=== PATIENT | female | born 1935 | race Caucasian/White ===

== ENCOUNTER 2023-12-06 15:49 | Emergency (ER) | payer MEDICARE, MEDICAID, SELFPAY ==
[2023-12-06] VITALS (8 sets, daily range): BP systolic 134–217; BP diastolic 77–111; PULSE 75–121; RESP 16–21; TEMP 36.8; O2SAT 92–96; BMI 21.6
--- NOTE | 2023-12-06 15:54 | XR_ITS ---
WS: [id number] Examination: XR chest 1V portable [id number] Reason for Exam: cp Date: December 06, 2023 Comparison: None. Findings: The heart is enlarged. The mediastinum appears prominent. Atherosclerotic changes of the aorta with b roadening is noted. There is no pulmonary edema or effusion. There is no dense consolidation. XR/XR chest 1V portable [id number] Impression: There is cardiomegaly. The mediastinum is prominent which may be related to the portable AP study. PA and lateral imaging is recommended for further evaluatio n There is no failure or consolidation..
--- NOTE | 2023-12-06 15:55 | ECG_ITS ---
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 Measurements Intervals [place] Rate: 76 P: 46 SD: 191 QRS: -19 QRSD: 85 T: 35 QT: 381 QTc: 430 Interpretive Statements SINUS RHYTHM MINIMAL VOLTAGE CRITERIA FOR LVH, CONSIDER NORMAL VARIANT [MEETS CRITERIA IN ONE OF: R(aVL), S(V1), R(V5), R(V5/V6)+S(V1)] SEPTAL MYOCARDIAL INFARCTION , PROBABLY OLD [40+ ms Q WAVE IN V1/V2] No previous ECG available for comparison Electronically Signed On 12-07-2023 7:38:10 CDT by Sergio Fletcher M.D. [email or web address]
--- NOTE | 2023-12-06 15:59 | ED_ITS ---
HPI - Chest Pain 2 General: Chief Complaint: Chest Pain Stated Complaint: cp Time Seen by Provider: 12/06/23 15:53 Source: patient and EMS Mode of arrival: EMS Limitations: altered mental status History of Present Illness: 88-year-old female has a history of lety ntia she is here from [facility] patient is at her baseline mentally which is alert to herself per EMS patient complained of some chest pain and actually 30 minutes ago she did now deny any pain she states she feels good denies vomiting denies abdominal pain. Associated symptoms: Deny abdominal pain, dyspnea, fever(s), nausea or vomiting Related Data Previous Rx's Medication Instructions Recorded hydrocodone 5 mg-acetaminophen 325 1 tab PO Q6H PRN pain #14 tabs 12/06/23 mg tablet Allergies Allergy/AdvReac Type Severity Reaction Status Date / Time No Known Allergies Allergy Verified 12/06/23 16:04 Review of Systems 2 Const: Denies: fever(s), chills, body aches or change in appetite ENMT: Denies: throat pain or dental pain Card: Reports: chest pain Resp: Denies: dyspnea GI: Denies: abdominal pain, nausea, vomiting or diarrhea : Denies: dysuria Musc: Denies: neck pain or back pain Skin/Breast: Denies: rash Neuro: Denies: headache(s) Physical Exam 2 Const: COMMON NORMALS: no acute distress, healthy appearing and alert; negative for patient oriented x3 ORIENTATION/CONSCIOUSNESS: Yes oriented to person; not oriented to place and not oriented to time HENMT: COMMON NORMALS: normocephalic and atraumatic HEAD & SCALP: n ormocephalic and atraumatic Eye: COMMON NORMALS: Equal, round and reactive pupils present and EOMs intact bilaterally PUPIL: Yes Equal, round and reactive pupils present Neck/C-Spine: COMMON NORMALS: full ROM and supple Chest: COMMONS NORMALS: normal inspection of the chest and normal palpation of entire chest wall Resp: COMMON NORMALS: normal respiratory effort, No retractions, No use of accessory muscles and clear to auscultation bilaterally AUSCULTATION: clear to auscultation bilaterally Cardio: COMMON NORMALS: regular rate, regular rhythm and No murmurs present (Cardio) RATE: regular rate RHYTHM: regular rhythm GI: COMMON NORMALS: Normal to inspection, nondistended, normoactive bowel sounds present, Soft to palpation, non-tender and no masses PALPATION: Yes Soft to palpation Extremity: COMMON NORMALS: normal to inspection and full ROM Neuro: COMMON NORMALS: moves all extremities and no focal motor deficits; negative for patient oriented x3 SENSORIUM/ORIENTATION: Yes alert, Yes oriented to person, No oriented to place and No oriented to time Psych: COMMON NORMALS: Normal thought process present and cooperative T HOUGHT PROCESS: Normal thought process present Skin: COMMON NORMALS: no rashes or lesions noted and no wounds GENERAL SKIN EXAM: no rashes or lesions noted Course 2 Vital Signs: Vital signs: Vital Signs Temperature 98.2 F 12/06/23 15:52 Pulse Rate 121 H 12/06/23 18:30 Respiratory Rate 20 H 12/06/23 18:05 Blood Pressure 134/77 12/06/23 18:30 Pulse Oximetry 94 12/06/23 18:30 Oxygen Delivery Me thod Room Air 12/06/23 18:30 MDM - Chest Pain Medical Decision Making Patient presents here with chest pain CT did show rib fracture is likely causing her pain troponins are negative she is stable for discharge back to [facility] follow-up PCP return if worsening Medical Records I reviewed the patient's medical records. Lab Data I reviewed the patient's lab results. 12/06/23 16:00 12/06/23 16:34 Radiology Impressions Chest X-Ray 12/06/23 15:54 Impression: There is cardiomegaly. The mediastinum is prominent which may be related to the portable AP study. PA and lateral imaging is recommended for further evaluation There is no failure or consolidation.. Chest CTA 12/06/23 16:40 IMPRESSION: No pulmonary embolus. No focal consolidations. Fractures of left ribs 7 and 8, and the lateral aspect of right rib 5. Healing fracture of the posterior aspect of right ribs 7 and 9. Laboratory Results WBC 9.69 10^3/uL (3.29-11.43) 12/06/23 16:00 RBC 5.00 10^6/uL (3.85-5.65) 12/06/23 16:00 Hgb 14.90 g/dL (11.27-16.99) 12/06/23 16:00 Hct 45.1 % (36-47) 12/06/23 16:00 MCV 90.2 fl (85-98) 12/06/23 16:00 MCH 29.8 pg (27-33) 12/06/23 16:00 MCHC 33.0 g/dL (30-55) 12/06/23 16:00 RDW 13.7 % (12.1-15.1) 12/06/23 16:00 Plt Count 194 10^3/cmm (157-399) 12/06/23 16:00 MPV 11.3 fL (7.4-10.4) H 12/06/23 16:00 Neut % (Auto) 77.0 % 12/06/23 16:00 Lymph % (Auto) 15.0 % 12/06/23 16:00 [place] % (Auto) 6.5 % 12/06/23 16:00 Eos % (Auto) 0.8 % 12/06/23 16:00 Baso % (Auto) 0.4 % 12/06/23 16:00 Neut # (Auto) 7.46 10^3/uL (1.8-7.7) 12/06/23 16:00 Lymph # (Auto) 1.5 10^3/uL (0.8-4.8) 12/06/23 16:00 [place] # (Auto) 0.6 10^3/uL (0.2-0.9) 12/06/23 16:00 Eos # (Auto) 0.1 10^3/uL (0.0-0.8) 12/06/23 16:00 Baso # (Auto) 0.0 10^3/uL (0.0-0.1) 12/06/23 16:00 Nucleated RBC % (auto) 0 % 12/06/23 16:00 Nucleated RBCs # 0.0 /100WBC 12/06/23 16:00 PT 12.60 SECONDS (12.1-14.9) 12/06/23 16:00 INR 0.92 (0.8-1.2) 12/06/23 16:00 Sodium 143 mmol/L (136-145) 12/06/23 16:34 Potassium 3.3 mmol/L (3.5-5.1) L 12/06/23 16:34 Chloride 106 mmol/L (98-107) 12/06/23 16:34 Carbon Dioxide 23 mmol/L (22-29) 12/06/23 16:34 Anion Gap 17.3 (5-19) 12/06/23 16:34 BUN 13 mg/dL (8-23) 12/06/23 16:34 Creatinine 0.6 mg/dL (0.5-0.9) 12/06/23 16:34 GFR Calculation Not Reportable 12/06/23 16:34 Glucose 106 mg/dL (65-115) 12/06/23 16:34 Calculated Osmolality 297 mOsm/kg (285-295) H 12/06/23 16:34 Calcium 8.9 mg/dL (8.5-10.5) 12/06/23 16:34 Total Bilirubin 1.0 mg/dL (0.15-1.2) 12/06/23 16:34 AST 15 U/L (0-32) 12/06/23 16:34 ALT 10 U/L (0-33) 12/06/23 16:34 Alkaline Phosphatase 108 U/L (35-105) H 12/06/23 16:34 Troponin T Baseline 11 ng/L (0-10) H 12/06/23 16:34 Troponin T 120 Minute 12.68 ng/L (0-10) H 12/06/23 18:24 Delta Troponin T 1.68 ABS# (0-10) 12/06/23 18:24 Total Protein 6.5 g/dL (6.6-8.7) L 12/06/23 16:34 Albumin 3.9 g/dL (3.5-5.2) 12/06/23 16:34 Globulin 2.6 g/dL (1.3-4.6) 12/06/23 16:34 Lipase 30 U/L (13-60) 12/06/23 16:34 All radiology interpretation(s) finalized by discharge EKG Data EKG 1: I personally reviewed and interpreted this EKG as follows: EKG interpretation date: 12/06/23 EKG interpretation time: 15:55 Interpretation: nsr hr [address] elevation qrs 85 qtc 412 Discharge Plan Discharge Patient Disposition: Home Clinical Impression: Chest pain, Closed rib fracture Condition: Stable Prescriptions: New hydrocodone-acetaminophen 5-325 mg tablet 1 tab PO Q6H PRN (Reason: pain) Qty: 14 0RF Discharge Orders: Discharge ED (Routine); Ordered 12/06/23 Ordered By: Page Fortune Discharge Diet: Advance as tolerated Discharge Activity: Resume usual activity Patient Instructions: Chest Pain (ED), Rib Fracture (ED) Coding Level of Care Code ED [place] Consultant for Deysi Umanzor
[2023-12-06 16:19] LABS: Basophils % 0.4 %; Eosinophils # 0.1 10^3/uL (0.0-0.8); Eosinophils % 0.8 %; Hematocrit 45.1 % (36-47); Lymphocytes # 1.5 10^3/uL (0.8-4.8); Mean Corpuscular Hemoglobin 29.8 pg (27-33); Mean Corpuscular Volume 90.2 fl (85-98); Mean Platelet Volume 11.3 fL (7.4-10.4); Monocytes # 0.6 10^3/uL (0.2-0.9); Monocytes % 6.5 %; Neutrophils # 7.46 10^3/uL (1.8-7.7); Nucleated Red Blood Cells % 0 %; Platelet Count 194 10^3/cmm (157-399); Red Cell Distribution Width 13.7 % (12.1-15.1); White Blood Count 9.69 10^3/uL (3.29-11.43)
[2023-12-06 16:35] LABS: INR 0.92 (0.8-1.2)
--- NOTE | 2023-12-06 16:40 | CTR_ITS ---
PROCEDURE INFORMATION: Exam: CTA Chest With Contrast Exam date and time: 12/06/2023 5:26 PM Age: 88 years old Clinical indication: Angina; Additional info: Cp TECHNIQUE: Imaging protocol: Computed tomographic angiography of the chest with contrast. Exam focused on the arteries. 3D rendering (Not supervised by radiologist): MIP and/or 3D reconstructed images were created by the technologist. Radiation optimization: All CT scans at this facility use at least one of these dose optimization techniques: automated exposure control; mA and/or kV adjustment per patient size (includes targeted exams where dose is matched to clinical indication); or iterative reconstruction. Contrast material: OMNI 350; Contrast volume: 63 ml; Contrast route: INTRAVENOUS (IV); COMPARISON: CR XR chest 1V portable [id number] 12/06/2023 4:26 PM RADIATION DOSE METRICS: Total DLP (mGy-cm): 297.97 FINDINGS: Pulmonary arteries: No pulmonary embolus. Aorta: Atherosclerotic calcifications. No aortic aneurysm. No aortic dissection. Lungs: No focal consolidations or suspicious pulmonary nodules. Calcified granuloma within the right middle lobe. Minimal atelectasis of the lingula and lung bases. Pleural spaces: Unremarkable. No pneumothorax. No pleural effusion. Heart: Cardiomegaly. Coronary arteries: Coronary artery calcifications. Lymph nodes: Unremarkable. No enlarged lymph nodes. Gallbladder and biliary ducts: Status post cholecystectomy. Bones/joints: Fractures of left ribs 7 and 8, and the lateral aspect of right rib 5. Healing fracture of the posterior aspect of right ribs 7 and 9. Soft tissues: Unremarkable. CT/CT angio chest [id number] IMPRESSION: No pulmonary embolus. No focal consolidations. Fractures of left ribs 7 and 8, and the lateral aspect of right rib 5. Healing fracture of the posterior aspect of right ribs 7 and 9.
[2023-12-06 17:16] LABS: Troponin(5th) Baseline 11 ng/L (0-10)
[2023-12-06] MEDS: hyDRALAzine 20 mg/mL INJ 1 mL 10 MG IVP ×2 (17:17→18:02)
[2023-12-06 17:19] LABS: Alanine Aminotransferase 10 U/L (0-33); Albumin Level 3.9 g/dL (3.5-5.2); Alkaline Phosphatase 108 U/L (35-105); Anion Gap 17.3 (5-19); Aspartate Amino Transferase 15 U/L (0-32); Blood Urea Nitrogen 13 mg/dL (8-23); Calcium 8.9 mg/dL (8.5-10.5); Carbon Dioxide 23 mmol/L (22-29); Chloride 106 mmol/L (98-107); Creatinine Clr Calc Pharmacy 44.3433; Globulin 2.6 g/dL (1.3-4.6); Glucose 106 mg/dL (65-115); Lipase 30 U/L (13-60); Osmolality Calculated 297 mOsm/kg (285-295); Potassium 3.3 mmol/L (3.5-5.1); Sodium 143 mmol/L (136-145); Total Protein 6.5 g/dL (6.6-8.7)
--- NOTE | 2023-12-06 17:20 | PC.NURSE ---
pt has dementia. pt unaware of where she is at, pt states her and her are here to visit the doctor. pt has taken off all vs equipment including cardiac monitoring leads. pt has taken off bp cuff, replaced. pt bd high and received meds. will continue to monitor.
[2023-12-06] MEDS: iohexol 350 mg/mL 500 mL Btl (per mL) IV (17:31)
--- NOTE | 2023-12-06 17:49 | PC.NURSE ---
pt is becoming more upset and agitated with staff. pt has dx of dementia and states she was here visiting her mother and that we the nurses have the wrong person because nothing is wrong with her. pt states you have the wrong girl and no will listen to me. I'm visiting my mother and that magda won't let me leave now. pt continues to states her name and that she want's to go home. pt continues to take off all vs equipment. this nurse was redirected pt multiple times, pt forgets conversation while in room.
[2023-12-06] MEDS: LORazepam 2 mg/mL INJ 1 mL 1 MG IVP (17:59)
[2023-12-06 18:47] LABS: Troponin 5 2HR 12.68 ng/L (0-10); Troponin 5 2HR Delta 1.68 ABS# (0-10)
[2023-12-06] MEDS: HYDROcodone-acetaminophen 5-325 mg Tablet 1 TAB PO (19:02)
== END 2023-12-06 19:09 | disposition home or self-care (01) ==
PROVIDERS: Emergency Provider Emergency Medicine
DX: R07.9 Chest pain, unspecified (principal); S22.43XA Multiple fractures of ribs, bilateral, initial encounter for closed fracture; F03.90 Unspecified dementia, unspecified severity, without behavioral disturbance, psychotic disturbance, mood disturbance, and anxiety; X58.XXXA Exposure to other specified factors, initial encounter
CPT/HCPCS: 36415; 71045; 71275; 80053; 83690; 84484; 85025; 85610; 93005; 96374; 96375; 96376; 99285; J0360; J2060; Q9967

== ENCOUNTER 2024-02-26 00:25 | Emergency (ER) | payer MEDICARE, MEDICAID, SELFPAY ==
--- NOTE | 2024-02-26 00:43 | CTR_ITS ---
PROCEDURE INFORMATION: Exam: CT Head Without Contrast Exam date and time: 02/26/2024 12:52 AM Age: 88 years old Clinical indication: Injury or trauma; Blunt trauma (contusions or hematomas); Patient HX: EMS arrival for fall with head strike. Hematoma to left frontal. TECHNIQUE: Imaging protocol: Computed tomography of the head without contrast. Radiation optimization: All CT scans at this facility use at least one of these dose optimization techniques: automated exposure control; mA and/or kV adjustment per patient size (includes targeted exams where dose is matched to clinical indication); or iterative reconstruction. COMPARISON: No relevant prior studies available. RADIATION DOSE METRICS: Total DLP (mGy-cm): 1060.18 FINDINGS: Brain: Generalized global atrophy. No intracranial masses or mass effect. No midline shift. No abnormal extra-axial collections. Patchy hypodensity in the periventricular and subcortical white matter in keeping with chronic microvascular ischemic changes. Punctate density right parietal lobe series 11, image 52 likely represents a calcification. Right globe prosthesis noted. Cerebral ventricles: Prominence of the ventricles commensurate with atrophy. No cj hydrocephalus. Paranasal sinuses: Visualized sinuses are unremarkable. No fluid levels. Mastoid air cells: Visualized mastoid air cells are well aerated. Bones: Unremarkable. No acute fracture. Soft tissues: Left frontal soft tissue swelling noted. Vasculature: There is intracranial atherosclerosis most prominent at the carotid siphons. CT/CT head wo con* [id number] IMPRESSION: 1. There is a 5 mm hyperdensity overlying the paramedian right parietal cortex which may represent a small acute parenchymal contusion versus a benign calcification. There are no prior studies available for comparison. Recommend interval follow-up. 2. No acute intracranial findings.
[2024-02-26 00:44] VITALS: BP 205/91; PULSE 65; RESP 18; TEMP 37.1; O2SAT 98; BMI 26.6
[2024-02-26 01:39] VITALS: PULSE 88; RESP 16; O2SAT 94
[2024-02-26 01:51] LABS: Bilirubin Urine Negative (Negative); Blood Urine Negative (Negative); Glucose Urine UA Negative (Normal); Ketones Urine Negative (Negative); Leukocyte Esterase Urine Negative (Negative); Nitrate Urine Negative (Negative); Protein Urine Negative (Negative); Specific Gravity, Urine 1.006 (1.005-1.030); Urine Appearance Clear (CLEAR); Urine Color Yellow (Yellow); Urobilinogen Urine 0.2 mg/dL (Negative); pH Urine 7.5 (5-7)
[2024-02-26 01:53] LABS: Bacteria Urine None Seen /hpf; Hyaline Casts Urine 0.81 /lpf; RBC Urine 0-2 /hpf (0-2); Squamous Epithelial Cell Urine 0-5 /hpf (0-5); WBC Urine 0-5 /hpf (0-5)
--- NOTE | 2024-02-26 02:23 | ED_ITS ---
HPI - Fall General: Chief Complaint: Fall Stated Complaint: FALL Time Seen by Provider: 02/26/24 01:24 History of Present Illness: 88-year-old female who fell in the [facility] home striking her head. Her mental status is baseline. No fever. Related Data Previous Rx's Medication Instructions Recorded hydrocodone 5 mg-acetaminophen 325 1 tab PO Q6H PRN pain #14 tabs 12/06/23 mg tablet Allergies Allergy/AdvReac Type Severity Reaction Status Date / Time No Known Allergies Allergy Verified 12/06/23 16:04 Physical Exam 2 Const: COMMON NORMALS: no acute distress and alert GENERAL APPEARANCE: cooperative and frail appearing; not ill appearing HENMT: COMMON NORMALS: normocephalic HEAD & SCALP: normocephalic and contusion (frontal/forehead) FACE & SINUS: face symmetric Eye: COMMON NORMALS: Equal, round and reactive pupils present and EOMs intact bilaterally PUPIL: Yes Equal, round and reactive pupils present Neck/C-Spine: COMMON NORMALS: full ROM GENERAL: Yes trachea midline and No tender Chest: CHEST: Yes Symmetrical chest wall rise Resp: COMMON NORMALS: normal respiratory effort, No use of accessory muscles and clear to auscultation bilaterally AUSCULTATION: clear to auscultation bilaterally Cardio: COMMON NORMALS: regular rate and regular rhythm RATE: regular rate RHYTHM: regular rhythm GI: COMMON NORMALS: Normal to inspection, nondistended, normoactive bowel sounds present, Soft to palpation and non-tender PALPATION: Yes Soft to palpation Extremity: NARRATIVE EXTREMITY EXAM: atraumatic Neuro: SENSORIUM/ORIENTATION: Yes alert COORDINATION/BALANCE: [id number] test normal SPEECH: speech normal MOTOR EXAM: Normal motor muscle tone present throughout COORDINATION: [id number] test normal Psych: COMMON NORMALS: cooperative Course Vital Signs: Vital signs: Vital Signs Temperature 98.7 F 02/26/24 00:44 Pulse Rate 88 02/26/24 01:39 Respiratory Rate 16 02/26/24 01:39 Blood Pressure 205/91 02/26/24 00:44 Pulse Oximetry 94 02/26/24 01:39 Oxygen Delivery Me thod Room Air 02/26/24 01:39 MDM - Fall Medical Decision Making Spoke with radiology about a 5 mm hyperdensity overlying the paramedian right parietal cortex. This is likely benign calcification. Patient's mental status is at baseline. She has not vomited. She has no headache. There is no focal neurologic deficit. She will be allowed discharge to return for worsening symptoms Lab Data Radiology Impressions Head CT 02/26/24 00:43 IMPRESSION: 1. There is a 5 mm hyperdensity overlying the paramedian right parietal cortex which may represent a small acute parenchymal contusion versus a benign calcification. There are no prior studies available for comparison. Recommend interval follow-up. 2. No acute intracranial findings. ADDENDUM: 02/26/24 0159 COMMENT: THIS REPORT CONTAINS FINDINGS THAT MAY BE CRITICAL TO PATIENT CARE. The exam findings were verbally communicated by me to AQUILINO GOOD via telephone conference at 1:58 AM CDT on 02/26/2024. The findings were acknowledged and understood. Laboratory Results Urine Color Yellow (Yellow) 02/26/24 01:40 Urine Appearance Clear (CLEAR) 02/26/24 01:40 Urine pH 7.5 (5-7) 02/26/24 01:40 Ur Specific [place] 1.006 (1.005-1.030) 02/26/24 01:40 Urine Protein Negative (Negative) 02/26/24 01:40 Urine Glucose (UA) Negative (Normal) 02/26/24 01:40 Urine Ketones Negative (Negative) 02/26/24 01:40 Urine Blood Negative (Negative) 02/26/24 01:40 Urine Nitrate Negative (Negative) 02/26/24 01:40 Urine Bilirubin Negative (Negative) 02/26/24 01:40 Urine Urobilinogen 0.2 mg/dL (Negative) 02/26/24 01:40 Ur Leukocyte Esterase Negative (Negative) 02/26/24 01:40 Urine RBC 0-2 /hpf (0-2) 02/26/24 01:40 Urine WBC 0-5 /hpf (0-5) 02/26/24 01:40 Ur Squamous Epith Cells 0-5 /hpf (0-5) 02/26/24 01:40 Amorphous Sediment Not Reportable 02/26/24 01:40 Urine Bacteria None seen /hpf (NONE) 02/26/24 01:40 Hyaline Casts 0.81 /lpf 02/26/24 01:40 All radiology interpretation(s) finalized by discharge Discharge Plan Discharge Patient Disposition: Home Clinical Impression: Contusion of scalp Condition: Stable Prescriptions: No Action hydrocodone-acetaminophen 5-325 mg tablet 1 tab PO Q6H PRN (Reason: pain) Qty: 14 0RF Discharge Orders: Discharge ED (Routine); Ordered 02/26/24 Ordered By: Aquilino Good Referrals: Isaiah Herndon DO [Primary Care Provider] - 1-3 days Patient Instructions: Scalp Contusion in Adults (ED), Opioid Safety, Pain Management Activity Restrictions/Additional Instructions: Return for headache, vomiting, worsening mental status, other concerning symptoms. Coding Level of Care Code ED [place] Machine Operator Helper for Deysi Umanzor
== END 2024-02-26 03:36 | disposition home or self-care (01) ==
PROVIDERS: Emergency Provider Emergency Medicine; PCP Internal Medicine
DX: S00.03XA Contusion of scalp, initial encounter (principal); W19.XXXA Unspecified fall, initial encounter
CPT/HCPCS: 70450; 81001; 99284

== ENCOUNTER 2024-03-28 20:38 | Emergency (ER) | payer MEDICARE, MEDICAID, SELFPAY ==
[2024-03-28 20:38] VITALS: BP 235/105; PULSE 72; RESP 16; TEMP 36.7; O2SAT 95; BMI 21.6
--- NOTE | 2024-03-28 20:42 | CTR_ITS ---
PROCEDURE INFORMATION: Exam: CT Head Without Contrast Exam date and time: 03/28/2024 8:56 PM Age: 89 years old Clinical indication: Injury or trauma; Fall TECHNIQUE: Imaging protocol: Computed tomography of the head without contrast. Radiation optimization: All CT scans at this facility use at least one of these dose optimization techniques: automated exposure control; mA and/or kV adjustment per patient size (includes targeted exams where dose is matched to clinical indication); or iterative reconstruction. COMPARISON: CT head wo con* [id number] 02/26/2024 12:52 AM RADIATION DOSE METRICS: Total DLP (mGy-cm): 970.08 FINDINGS: Brain: No hemorrhage. No edema. Advanced diffuse cerebral atrophy and sequela of chronic small vessel ischemic disease. 1.3 cm partially calcified meningioma noted adjacent to the falx. Cerebral ventricles: No ventriculomegaly. Paranasal sinuses: Visualized sinuses are unremarkable. No fluid levels. Mastoid air cells: Visualized mastoid air cells are well aerated. Bones: Unremarkable. No acute fracture. Soft tissues: Unremarkable. CT/CT head wo con* [id number] IMPRESSION: No acute intracranial abnormality.
--- NOTE | 2024-03-28 20:42 | XRR_ITS ---
PROCEDURE INFORMATION: Exam: XR Left Hip Exam date and time: 03/28/2024 8:44 PM Age: 89 years old Clinical indication: Injury or trauma; Fall; Blunt trauma (contusions or hematomas); Left; Hip TECHNIQUE: Imaging protocol: Radiologic exam of the left hip. Views: 2 or 3 views hip with pelvis when performed. COMPARISON: No relevant prior studies available. FINDINGS: Bones/joints: No acute fracture. Soft tissues: Unremarkable. XR/XR hip LT 2-3V wo/w pel* [id number] IMPRESSION: No acute findings.
--- NOTE | 2024-03-28 20:45 | ED_ITS ---
HPI - Fall 2 General: Chief Complaint: Fall Stated Complaint: FALL Time Seen by Provider: 03/28/24 20:38 Source: patient and EMS Mode of arrival: EMS Limitations: no limitations History of Present Illness: 89-year-old female is here from care home she had a fall today 3 hours ago was witnessed fall denies hitting her head states she has had some dizziness throughout the day. Nursing was concerned as they state that she would not move her left leg here she is moving her left leg for me and was able to ambulate with a walker. She denies pain denies any vomiting diarrhea she is hypertensive here Associated symptoms-after fall: Denies abdominal pain, chest pain, headache(s) or neck pain Related Data Previous Rx's Medication Instructions Recorded hydrocodone 5 mg-acetaminophen 325 1 tab PO Q6H PRN pain #14 tabs 12/06/23 mg tablet Allergies Allergy/AdvReac Type Severity Reaction Status Date / Time No Known Allergies Allergy Verified 03/28/24 20:45 Review of Systems 2 Const: Denies: fever(s), chills, body aches or change in appetite ENMT: Denies: throat pain or dental pain Card: Denies: chest pain Resp: Denies: dyspnea GI: Denies: abdominal pain, nausea, vomiting or diarrhea Musc: Denies: neck pain or back pain Skin/Breast: Denies: rash Neuro: Denies: headache(s) Physical Exam 2 Const: COMMON NORMALS: no acute distress and healthy appearing HENMT: COMMON NORMALS: normocephalic and atraumatic HEAD & SCALP: n ormocephalic and atraumatic Eye: COMMON NORMALS: Equal, round and reactive pupils present and EOMs intact bilaterally PUPIL: Yes Equal, round and reactive pupils present Neck/C-Spine: COMMON NORMALS: full ROM and supple Chest: COMMONS NORMALS: normal inspection of the chest and normal palpation of entire chest wall Resp: COMMON NORMALS: normal respiratory effort, No retractions, No use of accessory muscles and clear to auscultation bilaterally AUSCULTATION: clear to auscultation bilaterally Cardio: COMMON NORMALS: regular rate, regular rhythm and No murmurs present (Cardio) RATE: regular rate RHYTHM: regular rhythm GI: COMMON NORMALS: Normal to inspection, nondistended, normoactive bowel sounds present, Soft to palpation, non-tender and no masses PALPATION: Yes Soft to palpation Extremity: COMMON NORMALS: normal to inspection and full ROM NARRATIVE EXTREMITY EXAM: No pain noted left hip patient was able to ambulate with a walker here Neuro: COMMON NORMALS: moves all extremities and no focal motor deficits Psych: COMMON NORMALS: mental status grossly normal, Normal thought process present and cooperative THOUGHT PROCESS: Normal thought process present Skin: COMMON NORMALS: no rashes or lesions noted and no wounds GENERAL SKIN EXAM: no rashes or lesions noted Course 2 Vital Signs: Vital signs: Vital Signs Temperature 98.0 F 03/28/24 20:38 Pulse Rate 72 03/28/24 22:15 Respiratory Rate 18 03/28/24 21:38 Blood Pressure 162/75 03/28/24 22:15 Pulse Oximetry 97 03/28/24 22:15 Oxygen Delivery Me thod Room Air 03/28/24 21:38 MDM - Fall Medical Decision Making Patient presents after a fall concerns of some difficulty walking patient able ambulate with a walker here head CT x-rays here are normal she is stable for discharge back to care home Medical Records I reviewed the patient's medical records. Lab Data I reviewed the patient's lab results. 03/28/24 21:20 03/28/24 21:[address] 03/28/24 20:42 IMPRESSION: No acute intracranial abnormality. Hip/Pelvis X-Ray 03/28/24 20:42 IMPRESSION: No acute findings. Laboratory Results WBC 9.58 10^3/uL (3.29-11.43) 03/28/24 21:20 RBC 4.94 10^6/uL (3.85-5.65) 03/28/24 21:20 Hgb 14.70 g/dL (11.27-16.99) 03/28/24 21:20 Hct 45.5 % (36-47) 03/28/24 21:20 MCV 92.1 fl (85-98) 03/28/24 21:20 MCH 29.8 pg (27-33) 03/28/24 21:20 MCHC 32.3 g/dL (30-55) 03/28/24 21:20 RDW 13.2 % (12.1-15.1) 03/28/24 21:20 Plt Count 236 10^3/cmm (157-399) 03/28/24 21:20 MPV 10.8 fL (7.4-10.4) H 03/28/24 21:20 Neut % (Auto) 78.3 % 03/28/24 21:20 Lymph % (Auto) 13.4 % 03/28/24 21:20 [place] % (Auto) 6.7 % 03/28/24 21:20 Eos % (Auto) 0.9 % 03/28/24 21:20 Baso % (Auto) 0.4 % 03/28/24 21:20 Neut # (Auto) 7.50 10^3/uL (1.8-7.7) 03/28/24 21:20 Lymph # (Auto) 1.3 10^3/uL (0.8-4.8) 03/28/24 21:20 [place] # (Auto) 0.6 10^3/uL (0.2-0.9) 03/28/24 21:20 Eos # (Auto) 0.1 10^3/uL (0.0-0.8) 03/28/24 21:20 Baso # (Auto) 0.0 10^3/uL (0.0-0.1) 03/28/24 21:20 Nucleated RBC % (auto) 0 % 03/28/24 21:20 Nucleated RBCs # 0.0 /100WBC 03/28/24 21:20 Sodium 140 mmol/L (136-145) 03/28/24 21:20 Potassium 4.0 mmol/L (3.5-5.1) 03/28/24 21:20 Chloride 106 mmol/L (98-107) 03/28/24 21:20 Carbon Dioxide 23 mmol/L (22-29) 03/28/24 21:20 Anion Gap 15.0 (5-19) 03/28/24 21:20 BUN 20 mg/dL (8-23) 03/28/24 21:20 Creatinine 0.5 mg/dL (0.5-0.9) 03/28/24 21:20 GFR Calculation Not Reportable 03/28/24 21:20 Glucose 116 mg/dL (65-115) H 03/28/24 21:20 Calculated Osmolality 294 mOsm/kg (285-295) 03/28/24 21:20 Calcium 9.2 mg/dL (8.5-10.5) 03/28/24 21:20 All radiology interpretation(s) finalized by discharge EKG Data EKG 1: I personally reviewed and interpreted this EKG as follows: EKG interpretation date: 03/28/24 EKG interpretation time: 20:45 Interpretation: nsr hr [address] elevation qrs 79 qtc 425 Discharge Plan Discharge Patient Disposition: Home Clinical Impression: Fall Condition: Stable Prescriptions: No Action hydrocodone-acetaminophen 5-325 mg tablet 1 tab PO Q6H PRN (Reason: pain) Qty: 14 0RF Discharge Orders: Discharge ED (Routine); Ordered 03/28/24 Ordered By: Page Fortune Referrals: Isaiah Herndon DO [Primary Care Provider] - 4-7 days Discharge Diet: Advance as tolerated Discharge Activity: Resume usual activity Patient Instructions: Fall Prevention (ED) Coding Level of Care Code ED Leasing Representative for Deysi Umanzor
--- NOTE | 2024-03-28 20:45 | ECG_ITS ---
[facility] Test Date: 2024-03-28 Pat Name: Shameka Stuart Department: Room: Gender: Female Car Trimmer: : 1935 Requested By: Page Fortune Order Number: [id number] Erica MD: Erik Barbosa M.D. Measurements Intervals [place] Rate: 69 P: 68 HI: 205 QRS: -9 QRSD: 79 T: 50 QT: 405 QTc: 436 Interpretive Statements SINUS RHYTHM SEPTAL MYOCARDIAL INFARCTION , OF INDETERMINATE AGE [40+ ms Q WAVE IN V1/V2] Compared to ECG 12/06/2023 15:55:55 No significant changes Electronically Signed On 03-29-2024 19:21:10 GAS GENERATOR OPERATOR by Erik Barbosa M.D. [id number]
[2024-03-28] MEDS: hyDRALAzine 20 mg/mL INJ 1 mL 10 MG IVP (21:08)
[2024-03-28 21:34] LABS: Basophils % 0.4 %; Eosinophils # 0.1 10^3/uL (0.0-0.8); Eosinophils % 0.9 %; Hematocrit 45.5 % (36-47); Lymphocytes # 1.3 10^3/uL (0.8-4.8); Lymphocytes % 13.4 %; Mean Corpuscular HGB Conc 32.3 g/dL (30-55); Mean Corpuscular Hemoglobin 29.8 pg (27-33); Mean Corpuscular Volume 92.1 fl (85-98); Mean Platelet Volume 10.8 fL (7.4-10.4); Monocytes # 0.6 10^3/uL (0.2-0.9); Monocytes % 6.7 %; Neutrophils % 78.3 %; Nucleated Red Blood Cells % 0 %; Platelet Count 236 10^3/cmm (157-399); Red Blood Count 4.94 10^6/uL (3.85-5.65); Red Cell Distribution Width 13.2 % (12.1-15.1); White Blood Count 9.58 10^3/uL (3.29-11.43)
[2024-03-28 21:38] VITALS: BP 193/99; PULSE 78; RESP 18; O2SAT 96
[2024-03-28 21:53] LABS: Blood Urea Nitrogen 20 mg/dL (8-23); Calcium 9.2 mg/dL (8.5-10.5); Carbon Dioxide 23 mmol/L (22-29); Chloride 106 mmol/L (98-107); Creatinine Clr Calc Pharmacy 43.4906; Glucose 116 mg/dL (65-115); Osmolality Calculated 294 mOsm/kg (285-295); Sodium 140 mmol/L (136-145)
[2024-03-28 22:15] VITALS: BP 162/75; PULSE 72; O2SAT 97
== END 2024-03-28 22:21 | disposition home or self-care (01) ==
PROVIDERS: Emergency Provider Emergency Medicine; PCP Internal Medicine
DX: Z03.89 Encounter for observation for other suspected diseases and conditions ruled out (principal)
CPT/HCPCS: 36415; 70450; 73502; 80048; 85025; 93005; 96374; 99285; J0360

== ENCOUNTER 2024-04-22 12:00 | Emergency (ER) | payer MEDICARE, MEDICAID, SELFPAY ==
[2024-04-22] VITALS (9 sets, daily range): BP systolic 134–208; BP diastolic 78–112; PULSE 66–78; RESP 18–20; TEMP 36.7; O2SAT 94–96
--- NOTE | 2024-04-22 12:05 | XRR_ITS ---
PROCEDURE INFORMATION: Exam: XR Chest Exam date and time: 04/22/2024 12:32 PM Age: 89 years old Clinical indication: Cough and dyspnea; Additional info: Dyspnea/cough TECHNIQUE: Imaging protocol: Radiologic exam of the chest. Views: 1 view. COMPARISON: CT angio chest [id number] 12/06/2023 5:26 PM FINDINGS: Tubes, catheters and devices: Surgical clips overlie the right abdomen. Lungs: Linear density identified within bilateral lower lungs. The lungs appear otherwise clear. Pleural spaces: No pleural effusion. No pneumothorax. Heart/Mediastinum: The cardiac silhouette appears borderline prominent. Coronary arterial calcifications are demonstrated. Vasculature: [id number] atherosclerotic calcification demonstrated within the aorta. Bones/joints: Diffusely decreased bone density. Generalized bony degenerative changes. Old healed bilateral rib fractures are demonstrated. Soft tissues: This study is limited by patient's body habitus. XR/XR chest 1V portable [id number] IMPRESSION: 1. Linear bilateral lower chest pulmonary atelectasis, or scarring. 2. Borderline prominence of the cardiac silhouette. 3. Chronic findings.
--- NOTE | 2024-04-22 12:16 | ED_ITS ---
HPI - Altered Mental Status 2 General: Chief Complaint: Altered Mental Status Stated Complaint: ams Time Seen by Provider: 04/22/24 12:05 History of Present Illness: 89-year-old female presents the emergenc y room with report of altered mental status. She is a resident of dementia. Staff there states she seemed to be more altered than usual. She denies any symptoms she is verbal answers questions. She denies any fall she denies any chest or abdominal pain denies any dysuria urgency or frequency vomiting or diarrhea. No specific report of symptoms other than just did not seem herself. Related Data Home Medications Medication Instructions Recorded Confirmed aspirin 81 mg tablet,delayed 81 mg PO DAILY 04/22/24 04/22/24 release bisacodyl 10 mg rectal suppository 10 mg [place] DAILY PRN Constipation 04/22/24 04/22/24 (Dulcolax (bisacodyl)) donepezil 10 mg tablet 10 mg PO QPM 04/22/24 04/22/24 magnesium hydroxide 400 mg/5 mL 30 ml PO Q3D PRN Constipation 04/22/24 04/22/24 oral suspension (Milk of Magnesia) olanzapine 2.5 mg tablet 2.5 mg PO DAILY 04/22/24 04/22/24 peg 400-propylene glycol 0.4 %-0.3 1 drp ophthalmic (eye) QPM 04/22/24 04/22/24 % eye gel drops (GenTeal Tears Severe Gel Drops) Previous Rx's Medication Instructions Recorded hydrocodone 5 mg-acetaminophen 325 1 tab PO Q6H PRN pain #14 tabs 12/06/23 mg tablet amlodipine 5 mg tablet 5 mg PO DAILY #30 tabs 04/22/24 lisinopril 10 mg tablet 10 mg PO DAILY #30 tabs 04/22/24 Allergies Allergy/AdvReac Type Severity Reaction Status Date / Time No Known Allergies Allergy Verified 03/28/24 20:45 Review of Systems 2 Narrative: Patient reportedly has dementia. Review of sedative with fair uncertain how reliable this is given her underlying diagnosis of dementia Const: Denies: fever(s) or chills Card: Denies: chest pain Resp: Denies: dyspnea GI: Denies: abdominal pain : Denies: dysuria, urinary frequency or urinary urgency Musc: Denies: neck pain or back pain Physical Exam 2 Const: GENERAL APPEARANCE: cooperative ORIENTATION/CONSCIOUSNESS: Yes awake HENMT: COMMON NORMALS: normocephalic, atraumatic and hearing grossly normal bilaterally HEAD & SCALP: normocephalic and atraumatic Resp: COMMON NORMALS: normal respiratory effort, No retractions, No use of accessory muscles and clear to auscultation bilaterally AUSCULTATION: clear to auscultation bilaterally Cardio: COMMON NORMALS: regular rate, regular rhythm and No murmurs present (Cardio) RATE: regular rate RHYTHM: regular rhythm GI: COMMON NORMALS: Soft to palpation and No hepatosplenomegaly present A USCULTATION: Yes normoactive bowel sounds PALPATION: Yes Soft to palpation, No Tenderness to palpation present (GI), No Guarding due to palpation present (GI) and Yes No hepatosplenomegaly present Extremity: COMMON NORMALS: normal to inspection, capillary refill normal, no clubbing, cyanosis or edema, no calf tenderness and no pedal edema Skin: COMMON NORMALS: no rashes or lesions noted GENERAL SKIN EXAM: no rashes or lesions noted Course 2 Vital Signs: Vital signs: Vital Signs Temperature 98.1 F 04/22/24 12:03 Pulse Rate 74 04/22/24 17:14 Respiratory Rate 18 04/22/24 15:22 Blood Pressure 148/78 04/22/24 17:14 Pulse Oximetry 96 04/22/24 17:14 Oxygen Delivery Me thod Room Air 04/22/24 15:50 MDM - Altered Mental Status Medical Decision Making Labs imaging reviewed. No clinically significant findings at this time her blood pressure is fairly markedly elevated troponins and EKGs did not show anything significant her first blood pressure was normal then she had several elevated when she was given labetalol and amlodipine her blood pressures improved we will discharge her back adjustments to her medication increase LOP to 5 mg daily and add lisinopril 10 mg daily. Follow-up with her primary care doctor. She did have some slight abnormalities in her urine however not enough to warrant initiating antibiotics we will wait till culture results. Lab Data 04/22/24 12:20 04/22/24 12:20 Radiology Impressions Chest X-Ray 04/22/24 12:05 IMPRESSION: 1. Linear bilateral lower chest pulmonary atelectasis, or scarring. 2. Borderline prominence of the cardiac silhouette. 3. Chronic findings. Laboratory Results WBC 7.05 10^3/uL (3.29-11.43) 04/22/24 12:20 RBC 4.68 10^6/uL (3.85-5.65) 04/22/24 12:20 Hgb 14.00 g/dL (11.27-16.99) 04/22/24 12:20 Hct 44.2 % (36-47) 04/22/24 12:20 MCV 94.4 fl (85-98) 04/22/24 12:20 MCH 29.9 pg (27-33) 04/22/24 12:20 MCHC 31.7 g/dL (30-55) 04/22/24 12:20 RDW 13.5 % (12.1-15.1) 04/22/24 12:20 Plt Count 222 10^3/cmm (157-399) 04/22/24 12:20 MPV 10.3 fL (7.4-10.4) 04/22/24 12:20 Neut % (Auto) 64.8 % 04/22/24 12:20 Lymph % (Auto) 24.5 % 04/22/24 12:20 [place] % (Auto) 7.2 % 04/22/24 12:20 Eos % (Auto) 2.3 % 04/22/24 12:20 Baso % (Auto) 0.9 % 04/22/24 12:20 Neut # (Auto) 4.57 10^3/uL (1.8-7.7) 04/22/24 12:20 Lymph # (Auto) 1.7 10^3/uL (0.8-4.8) 04/22/24 12:20 [place] # (Auto) 0.5 10^3/uL (0.2-0.9) 04/22/24 12:20 Eos # (Auto) 0.2 10^3/uL (0.0-0.8) 04/22/24 12:20 Baso # (Auto) 0.1 10^3/uL (0.0-0.1) 04/22/24 12:20 Nucleated RBC % (auto) 0 % 04/22/24 12:20 Nucleated RBCs # 0.0 /100WBC 04/22/24 12:20 Sodium 139 mmol/L (136-145) 04/22/24 12:20 Potassium 4.0 mmol/L (3.5-5.1) 04/22/24 12:20 Chloride 104 mmol/L (98-107) 04/22/24 12:20 Carbon Dioxide 24 mmol/L (22-29) 04/22/24 12:20 Anion Gap 15.0 (5-19) 04/22/24 12:20 BUN 18 mg/dL (8-23) 04/22/24 12:20 Creatinine 0.7 mg/dL (0.5-0.9) 04/22/24 12:20 GFR Calculation Not Reportable 04/22/24 12:20 Glucose 101 mg/dL (65-115) 04/22/24 12:20 Calculated Osmolality 290 mOsm/kg (285-295) 04/22/24 12:20 Calcium 9.2 mg/dL (8.5-10.5) 04/22/24 12:20 Total Bilirubin 1.1 mg/dL (0.15-1.2) 04/22/24 12:20 AST 17 U/L (0-32) 04/22/24 12:20 ALT 13 U/L (0-33) 04/22/24 12:20 Alkaline Phosphatase 116 U/L (35-105) H 04/22/24 12:20 Troponin T Baseline 14 ng/L (0-10) H 04/22/24 12:20 Troponin T 120 Minute 14.18 ng/L (0-10) H 04/22/24 14:20 Delta Troponin T 0.18 ABS# (0-10) 04/22/24 14:20 Total Protein 6.0 g/dL (6.6-8.7) L 04/22/24 12:20 Albumin 3.7 g/dL (3.5-5.2) 04/22/24 12:20 Globulin 2.3 g/dL (1.3-4.6) 04/22/24 12:20 Urine Color Yellow (Yellow) 04/22/24 12:30 Urine Appearance Clear (CLEAR) 04/22/24 12:30 Urine pH 6.5 (5-7) 04/22/24 12:30 Ur Specific [place] 1.013 (1.005-1.030) 04/22/24 12:30 Urine Protein Negative (Negative) 04/22/24 12:30 Urine Glucose (UA) Negative (Normal) 04/22/24 12:30 Urine Ketones Negative (Negative) 04/22/24 12:30 Urine Blood Negative (Negative) 04/22/24 12:30 Urine Nitrate Positive (Negative) A 04/22/24 12:30 Urine Bilirubin Negative (Negative) 04/22/24 12:30 Urine Urobilinogen 1.0 mg/dL (Negative) 04/22/24 12:30 Ur Leukocyte Esterase Negative (Negative) 04/22/24 12:30 Urine RBC 0-2 /hpf (0-2) 04/22/24 12:30 Urine WBC 0-5 /hpf (0-5) 04/22/24 12:30 Ur Squamous Epith Cells 0-5 /hpf (0-5) 04/22/24 12:30 Amorphous Sediment Not Reportable 04/22/24 12:30 Urine Bacteria 4+ /hpf (NONE) H 04/22/24 12:30 Hyaline Casts 1.65 /lpf 04/22/24 12:30 Coronavirus (PCR) Negative (Negative) 04/22/24 13:20 Influenza A (PCR) Negative (Negative) 04/22/24 13:20 Influenza Type B (PCR) Negative (Negative) 04/22/24 13:20 RSV (PCR) Negative (Negative) 04/22/24 13:20 All radiology interpretation(s) finalized by discharge Discharge Plan Discharge Patient Disposition: Home Clinical Impression: Dementia, HTN (hypertension) Condition: Stable Prescriptions: New amlodipine 5 mg tablet 5 mg PO DAILY Qty: 30 0RF lisinopril 10 mg tablet 10 mg PO DAILY Qty: 30 0RF Discontinued amlodipine 2.5 mg tablet 2.5 mg PO DAILY No Action donepezil 10 mg tablet 10 mg PO QPM olanzapine 2.5 mg tablet 2.5 mg PO DAILY aspirin 81 mg tablet,delayed release (DR/EC) 81 mg PO DAILY magnesium hydroxide [Milk of Magnesia] 400 mg/5 mL Suspension 30 ml PO Q3D PRN (Reason: Constipation) bisacodyl [Dulcolax (bisacodyl)] 10 mg Suppository 10 mg W[place] DAILY PRN (Reason: Constipation) GenTeal Tears Severe Gel Drops 0.4-0.3 % Drops,Gel 1 drp OPHTHALMIC (EYE) QPM Rx Instructions: apply in both eyes at bedtime hydrocodone-acetaminophen 5-325 mg tablet 1 tab PO Q6H PRN (Reason: pain) Qty: 14 0RF Discharge Orders: Discharge ED (Routine); Ordered 04/22/24 Ordered By: Rayo Lima Referrals: Isaiah Herndon, [Primary Care Provider] - Discharge Diet: Usual diet Discharge Activity: Increase activity as tolerated Patient Instructions: Altered Mental Status (ED), Opioid Safety, Pain Management Activity Restrictions/Additional Instructions: Thank you for choosing [facility] for your healthcare needs today. It is very important that you follow up as instructed or that you return to the Emergency Department should you have concerns or if your condition changes or worsens in any way. You are seen in the emergency room for concerns about change in mental status. There is no signs of infection. There is slight abnormality in your urine however was not convincing we will wait until culture returns before recommending any antibiotics. Blood pressure was normal when you first arrived and then was elevated later in the visit. Recommend that you increase your amlodipine to 5 mg daily and add 10 mg daily of lisinopril. Coding Level of Care Code ED Sail Finisher Machine for Deysi Umanzor
--- NOTE | 2024-04-22 12:23 | PC.PHAR ---
patient is from [facility]
[2024-04-22 12:28] LABS: Basophils # 0.1 10^3/uL (0.0-0.1); Basophils % 0.9 %; Eosinophils # 0.2 10^3/uL (0.0-0.8); Eosinophils % 2.3 %; Hematocrit 44.2 % (36-47); Lymphocytes # 1.7 10^3/uL (0.8-4.8); Lymphocytes % 24.5 %; Mean Corpuscular HGB Conc 31.7 g/dL (30-55); Mean Corpuscular Hemoglobin 29.9 pg (27-33); Mean Corpuscular Volume 94.4 fl (85-98); Mean Platelet Volume 10.3 fL (7.4-10.4); Monocytes # 0.5 10^3/uL (0.2-0.9); Monocytes % 7.2 %; Neutrophils # 4.57 10^3/uL (1.8-7.7); Neutrophils % 64.8 %; Nucleated Red Blood Cells % 0 %; Platelet Count 222 10^3/cmm (157-399); Red Blood Count 4.68 10^6/uL (3.85-5.65); Red Cell Distribution Width 13.5 % (12.1-15.1); White Blood Count 7.05 10^3/uL (3.29-11.43)
[2024-04-22 12:40] LABS: Bilirubin Urine Negative (Negative); Blood Urine Negative (Negative); Glucose Urine UA Negative (Normal); Ketones Urine Negative (Negative); Leukocyte Esterase Urine Negative (Negative); Nitrate Urine Positive (Negative); Protein Urine Negative (Negative); Specific Gravity, Urine 1.013 (1.005-1.030); Urine Appearance Clear (CLEAR); Urine Color Yellow (Yellow); pH Urine 6.5 (5-7)
[2024-04-22 12:42] LABS: Add Urine Microscopic? YES; Bacteria Urine 4+ /hpf; Hyaline Casts Urine 1.65 /lpf; RBC Urine 0-2 /hpf (0-2); Squamous Epithelial Cell Urine 0-5 /hpf (0-5); WBC Urine 0-5 /hpf (0-5)
[2024-04-22 12:43] LABS: Add Urine Culture? Yes
[2024-04-22 12:45] LABS: Troponin(5th) Baseline 14 ng/L (0-10)
[2024-04-22 12:49] LABS: Alanine Aminotransferase 13 U/L (0-33); Albumin Level 3.7 g/dL (3.5-5.2); Alkaline Phosphatase 116 U/L (35-105); Aspartate Amino Transferase 17 U/L (0-32); Blood Urea Nitrogen 18 mg/dL (8-23); Calcium 9.2 mg/dL (8.5-10.5); Carbon Dioxide 24 mmol/L (22-29); Chloride 104 mmol/L (98-107); Globulin 2.3 g/dL (1.3-4.6); Glucose 101 mg/dL (65-115); Osmolality Calculated 290 mOsm/kg (285-295); Sodium 139 mmol/L (136-145); Total Bilirubin 1.1 mg/dL (0.15-1.2)
--- NOTE | 2024-04-22 13:16 | ECG_ITS ---
[facility] [employer] Test Date: 2024-04-22 Pat Name: Shmaeka Stuart Department: Room: Gender: Female Scheme Technician: : 1935 Requested By: Rayo Schmitz Order Number: [id number] Erica MD: Sergio Fletcher M.D. Measurements Intervals [place] Rate: 69 P: 67 SC: 215 QRS: -19 QRSD: 78 T: 27 QT: 401 QTc: 430 Interpretive Statements SINUS RHYTHM WITH MARKED SINUS ARRHYTHMIA WITH FIRST DEGREE AV BLOCK MODERATE VOLTAGE CRITERIA FOR LVH, CONSIDER NORMAL VARIANT [MEETS CRITERIA IN ONE OF: R(aVL), S(V1), R(V5), R(V5/V6)+S(V1)] POSSIBLE SEPTAL MYOCARDIAL INFARCTION , PROBABLY OLD [30 ms Q WAVE IN V1/V2] Compared to ECG 03/28/2024 20:45:33 First degree AV block now present Myocardial infarct finding still present Electronically Signed On 04-23-2024 20:08:08 HAT PARTS CUTTER MACHINE by Sergio Fletcher M.D. [id number]
[2024-04-22 14:09] LABS: Covid PCR NEGATIVE (Negative); Influenza A NEGATIVE (Negative); Influenza B NEGATIVE (Negative); Respiratory Syncytial Virus Ce NEGATIVE (Negative)
[2024-04-22 14:48] LABS: Troponin 5 2HR 14.18 ng/L (0-10); Troponin 5 2HR Delta 0.18 ABS# (0-10)
--- NOTE | 2024-04-22 15:48 | PC.NURSE ---
pt will not keep bp cuff d/t hurting her arm.
[2024-04-22] MEDS: amlodipine 5 mg Tablet PO (16:14)
[2024-04-22] MEDS: labetalol 5 mg/mL SDV 20mL 10 MG IVP (16:14)
== END 2024-04-22 17:15 | disposition home or self-care (01) ==
PROVIDERS: Emergency Provider Family Medicine; PCP Internal Medicine
DX: F03.90 Unspecified dementia, unspecified severity, without behavioral disturbance, psychotic disturbance, mood disturbance, and anxiety (principal); I10 Essential (primary) hypertension; Z11.52 Encounter for screening for COVID-19; Z79.82 Long term (current) use of aspirin
CPT/HCPCS: 71045; 80053; 81001; 84484; 85025; 87077; 87086; 87186; 87637; 93005; 96374; 99285; J3490